=== PATIENT | female | born 1990 | race Caucasian/White ===

== ENCOUNTER 2018-08-27 08:31 | Emergency (ER) | payer MEDICAID ==
[~2018-08-27] VITALS: Ht 157.5 cm; Wt 59.5 kg
[2018-08-27 08:40] VITALS: BP 137/83; Ht 157.5 cm; Wt 59.5 kg
== END 2018-08-27 10:52 | disposition home or self-care (01) ==
LOC: ED 08:31
DX: H66.91 Otitis media, unspecified, right ear (principal); Z91.018 Allergy to other foods; Z90.710 Acquired absence of both cervix and uterus; Z90.49 Acquired absence of other specified parts of digestive tract